=== PATIENT | female | born 1970 | race Caucasian/White ===

== ENCOUNTER 2022-09-15 17:32 | Emergency (ER) | payer OTHER ==
[~2022-09-15] VITALS: Ht 170.2 cm; Wt 76.2 kg
[2022-09-15] MEDS ORDERED: AMOCLA875 PO ×2 (17:57→21:56)
== END 2022-09-15 21:55 | disposition home or self-care (01) ==
LOC: ER 17:32
DX: S62.524B Nondisplaced fracture of distal phalanx of right thumb, initial encounter for open fracture (principal); Y04.1XXA Assault by human bite, initial encounter
CPT/HCPCS: 36415; 73140; 90714; J0295